=== PATIENT | male | born 1985 ===

== ENCOUNTER 2018-05-20 20:10 | Emergency (ER) | payer SELFPAY ==
[2018-05-20 20:19] VITALS: BP 146/78; PULSE 78; TEMP 99.2; O2SAT 99
[2018-05-20 21:04] LABS: SPERM URINE OCC /hpf; SQUAMOUS EPITHIAL < 1 /hpf (0-5); URINE BACTERIA RARE (<OCC); URINE BILIRUBIN NEGATIVE (NEGATIVE); URINE BLOOD NEGATIVE (NEGATIVE); URINE CLARITY Clear (Clear); URINE COLOR Yellow (YELLOW); URINE GLUCOSE (UA) NORMAL (Normal); URINE LEUKOCYTE ESTERASE NEG Leu/uL (Negative); URINE PROTEIN NEGATIVE (NEGATIVE); URINE UROBILINOGEN NORMAL mg/dL (0.2-1.0)
--- NOTE | 2018-05-20 21:29 | C.PDOC ---
History Of Present Illness 33 yo male come in for evaluation of left sided flank/lower back pain gradually developed since yesterday " after was lifting heavy boxes". Pt reports, pain is localized, non-radiating and worse with movement. Pt denies known direct trauma or injury, abd. pain, N/V/D, UTI sx, saddle anesthesia, incontinence, denies weakness, sensory or vascular deficits to B/L LES. Ambulate to Ed for evaluation, not in any apparent distress. Time Seen by Provider: 05/20/18 20:29 Chief Complaint (Nursing): Back Pain History Per: Patient Past Medical History Reviewed: Historical Data, Nursing Documentation, Vital Signs Vital Signs: Last Vital Signs Temp 99.2 F 05/20/18 20:16 Pulse 78 05/20/18 20:16 Resp 14 05/20/18 20:16 BP 146/78 05/20/18 20:16 Pulse Ox 99 05/20/18 20:16 - Medical History PMH: No Chronic Diseases Family History: States: No Known Family Hx - Social History Hx Alcohol Use: No Hx Substance Use: No - Immunization History Hx Tetanus Toxoid Vaccination: No Hx Influenza Vaccination: No Hx Pneumococcal Vaccination: No Review Of Systems Except As Marked, All Systems Reviewed And Found Negative. Constitutional: Negative for: Fever, Chills ENT: Negative for: Throat Pain Cardiovascular: Negative for: Chest Pain Respiratory: Negative for: Cough, Shortness of Breath Gastrointestinal: Negative for: Nausea, Vomiting, Abdominal Pain, Diarrhea Genitourinary: Negative for: Dysuria, Incontinence Musculoskeletal: Positive for: Back Pain. Negative for: Neck Pain Skin: Negative for: Rash Neurological: Negative for: Weakness, Numbness, Headache, Dizziness Physical Exam - Physical Exam Appears: Well, Non-toxic, No Acute Distress Skin: Normal Color, Warm, Dry, No Rash Head: Normacephalic Eye(s): bilateral: PERRL Nose: Normal Throat: No Erythema, No Drooling Neck: Trachea Midline, Supple Gastrointestinal/Abdominal: Soft, No Tenderness, No Distention, No Guarding, No Rebound Back: No CVA Tenderness, No Vertebral Tenderness, Paraspinal Tenderness (left sided diffuse lumbar), Other (left flank tenderness, no skin changes.) Extremity: Normal ROM, No Calf Tenderness, No Deformity, No Swelling Extremity: Bilateral: Atraumatic Neurological/Psych: Oriented x3, Normal Speech, Normal Motor, Normal Sensation, Normal Reflexes ED Course And Treatment O2 Sat by Pulse Oximetry: 99 Pulse Ox Interpretation: Normal - Other Rad L-spine X-Ray: Interpreted by Me, Viewed By Me Interpretation: (-) acute fx or sublux Progress Note: On re-eval, pt is afebrile, hemodynamicaly stable. Non-toxic. Ambulatory in ED with stable gait. ENT: No acute findings. Abd: benign. back: (-) CVA tenderness. Neuorlogicaly intact. Imaging review and appeas normal. UA- negative. Pt has clinical findings c/w Left sided flank/lower back strain. Pt advised. ref. to F/U with PMD in 2-3 days for re-eavl. return if any new changes. Disposition Counseled Patient/Family Regarding: Studies Performed, Diagnosis, Need For Followup, Rx Given - Disposition Referrals: [facility] [Outside] Disposition: HOME/ ROUTINE Disposition Time: 21:26 Condition: STABLE Additional Instructions: LIght duty, avoid physical activity for r1 week, heavy lifting, etc Take pain medication as prescribed as need Follow up with PMD in2-3 days for re-evaluation. return to ED if any worsening or new changes. Prescriptions: Gabapentin [Neurontin] 300 mg PO Q12 #10 cap Ibuprofen [Motrin Tab] 600 mg PO BID #14 tab traMADol [Ultram] 50 mg PO Q12 #7 tab Instructions: Lumbar Muscle Strain (DC) Forms: [facility] (Armenian), Work Excuse - Clinical Impression Clinical Impression: Low back strain
[2018-05-20 21:51] VITALS: RESP 20
--- NOTE | 2018-05-21 08:38 | RAD ---
Date of service: 05/20/2018 PROCEDURE: Radiographs of the Lumbar Spine. HISTORY: pain COMPARISON: None available. FINDINGS: BONES: Alignment appears satisfactory. No listhesis. No acute displaced fracture identified. DISC SPACES: Unremarkable. OTHER FINDINGS: None. IMPRESSION: No acute displaced fracture or subluxation identified.
== END 2018-05-20 21:50 | disposition home or self-care (01) ==
LOC: C.ER 20:10
DX: S39.012A Strain of muscle, fascia and tendon of lower back, initial encounter (principal); X50.0XXA Overexertion from strenuous movement or load, initial encounter